=== PATIENT | female | born 1975 | race Caucasian/White ===

== ENCOUNTER 2018-02-19 11:49 | Emergency (ER) | payer OTHER ==
[~2018-02-19] VITALS: Ht 172.7 cm; Wt 87.7 kg
[~2018-02-19 11:49] MED LIST: BACTRIM,SEPT1 TABLET PO; CELEBREX100 MG PO; CELEBREX200 MG PO; GLIPIZIDE10 MG PO; GLUCOPHAGE1000 MG PO; IBU-200200 MG PO; KEFLEX500 MG PO; NAPROSYN500 MG PO; NO MEDS; NOHOMEMEDS; PERCOCET 5/31 TABLET PO; PRAVACHOL40 MG PO; PRAVASTATIN SOD20 MG PO; PROBIOTIC1 EAC1 PO
[2018-02-19] MEDS ORDERED: LANTUS 3 M100 UNITS1 SC (13:12)
[2018-02-19] MEDS ORDERED: PREDNISONE50 MG PO (13:32)
[2018-02-19] MEDS ORDERED: FLEXERIL10 MG PO (13:32)
[2018-02-19] MEDS ORDERED: MOTRIN600 MG PO (13:32)
[2018-02-19] MEDS ORDERED: NORCO 5/3251 TABLET PO (13:32)
[2018-02-19 13:49] VITALS: BP 118/90
== END 2018-02-19 14:05 | disposition home or self-care (01) ==
LOC: EME 11:49
DX: M54.12 Radiculopathy, cervical region (principal); G89.29 Other chronic pain; E11.9 Type 2 diabetes mellitus without complications
CPT/HCPCS: 82948; 99281; 99284